=== PATIENT | male | born 1980 | race Caucasian/White ===

== ENCOUNTER 2019-01-20 15:20 | Emergency (ER) | payer BC ==
[~2019-01-20] VITALS: Ht 172.7 cm; Wt 94.0 kg
[2019-01-20 15:47] VITALS: Ht 172.7 cm; Wt 94.0 kg
[2019-01-20 17:02] LABS: BASOPHIL % 0.3 % (0-2); PLATELET COUNT 270 x10^3mcL (130-400)
[2019-01-20 17:03] LABS: CALCIUM 8.8 mg/dL (8.5-10.1); CARBON DIOXIDE 29.4 mmol/L (21-32); CHLORIDE SERUM 102 mmol/L (98-107); GFR1 > 60 mL/min; GLUCOSE SERUM 91 mg/dL (74-106); POTASSIUM SERUM 3.9 mmol/L (3.5-5.1); SODIUM SERUM 138 mmol/L (136-145)
[2019-01-20 17:08] LABS: ALKALINE PHOSPHATASE 74 U/L (46-116); ALT/SGPT 44 U/L (16-63); AST/SGOT 17 U/L (15-37); BILIRUBIN TOTAL 0.72 mg/dL (0.20-1.00); LIPASE 66 IU/L (73-393); TOTAL PROTEIN, SERUM 7.6 g/dL (6.4-8.2)
[2019-01-20 20:20] VITALS: BP 126/81
== END 2019-01-20 20:20 | disposition home or self-care (01) ==
LOC: ED 15:20
PROVIDERS: Emergency Medicine
DX: N23 Unspecified renal colic (principal)
CPT/HCPCS: J1885; J2270; J2405; J3010; J7030